=== PATIENT | female | born 1985 | race African-American/Black ===

== ENCOUNTER 2019-02-06 14:44 | Emergency (ER) | payer MEDICAID ==
--- NOTE | 2019-02-06 15:15 | ED ---
Neurological HPI - HPI Summary HPI Summary: Patient is a 33 y/o F w/ Hx of seizures who presents to [facility] via EMS for reported seizure episode that occurred earlier today, 02/06/19. Patient reports that she had onset of blurred vision and light-headedness earlier today. Shortly afterwards, patient states she began to "twitch" and that her body "locked-up". Episode is estimated to have lasted 10-15 minutes. Patient denies LOC. She has been on Keppra 1000 mg in the morning and 500 mg in the evening for the past three months. Hx of carpal tunnel syndrome, herniated disc, arthritis, sciatica, depression, anxiety is reported. 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 She states that she has been clean since September 2018 and reports that she had just recently started taking suboxone. Patient is also on baclofen, gabapentin, clindamyacin for a tooth infection, diazepam, hydroxyzine PRN, ibuprofen PRN. On triage, pain is denied, nothing is noted to aggravate/alleviate Sx. Home medications and allergies are reviewed. - History of Current Complaint Stated Complaint: SEIZURE PER EMS Time Seen by Provider: 02/06/19 14:46 Hx Obtained From: Patient Onset/Duration: Resolved Timing: Intermittent Episodes Lasting: Current Severity: None - pain is denied Neurological Deficit Location: Generalized Pain Intensity: 0 Pain Scale Used: 0-10 Numeric Character: Dizzy - light-headed, Visual Changes - blurred vision, Other: - seizure Aggravating: Nothing Alleviating: Nothing Associated Signs and Symptoms: Positive: Visual Changes - blurred vision, Dizziness - light-headedness, Seizure - Allergy/Home Medications Allergies/Adverse Reactions: Allergies Allergy/AdvReac Type Severity Reaction Status Date / Time amoxicillin Allergy Anaphylatic Verified 02/06/19 14:50 Shock Iodine and Iodide Containing Allergy Hives Verified 02/06/19 14:50 Produc Penicillins Allergy Anaphylatic Verified 02/06/19 14:50 Shock tramadol Allergy Rash Verified 02/06/19 14:50 PMH/Surg Hx/FS Hx/Imm Hx Musculoskeletal History: Reports: Hx Arthritis, Other Musculoskeletal History - herniated disc Neurological History: Reports: Hx Seizures, Other Neuro Impairments/Disorders - sciatica,carpal tunnel syndrome Psychiatric History: Reports: Hx Anxiety, Hx Depression, Hx Substance Abuse Infectious Disease History: No Infectious Disease History: Denies: Traveled Outside the [place] in Last 30 Days - Family History Known Family History: Negative: Seizure Disorder - Social History Alcohol Use: None Substance Use Type: Reports: None Substance Use Comment - Amount & Last Used: hx meth heroin 12/2018 Smoking Status (MU): Former Smoker Review of Systems Positive: Blurred Vision Neurological: Other - positive - reported seizure activity, light-headedness Negative: Syncope - no LOC All Other Systems Reviewed And Are Negative: Yes Physical Exam - Summary Physical Exam Summary: Appearance: The patient is well-nourished in no acute distress and in no acute pain. Skin: The skin is warm and dry, and skin color reflects adequate perfusion. HEENT: The head is normocephalic and atraumatic. The pupils are equal and reactive. The conjunctivae are clear and without drainage. Nares are patent and without drainage. Mouth reveals moist mucous membranes, and the throat is without erythema and exudate. The external ears are intact. The ear canals are patent and without drainage. The tympanic membranes are intact. Neck: The neck is supple with full range of motion and non-tender. There are no carotid bruits. There is no neck vein distension. Respiratory: Chest is non-tender. Lungs are clear to auscultation and breath sounds are symmetrical and equal. Cardiovascular: Heart is regular rate and rhythm. There is no murmur or rub auscultated. There is no peripheral edema and pulses are symmetrical and equal. Abdomen: The abdomen is soft and non-tender. There are normal bowel sounds heard in all four quadrants and there is no organomegaly palpated. Musculoskeletal: There is no back tenderness noted. Extremities are non-tender with full range of motion. There is good capillary refill. There is no peripheral edema or calf tenderness elicited. Neurological: Patient is alert and oriented to person, place and time. The patient has symmetrical motor strength in all four extremities. Cranial nerves are grossly intact. Deep tendon reflexes are symmetrical and equal in all four extremities. Psychiatric: The patient has an appropriate affect and does not exhibit any anxiety or depression. Triage Information Reviewed: Yes Vital Signs On Initial Exam: Initial Vitals Temp Pulse Resp BP Pulse Ox 98.8 F 98 16 128/83 99 02/06/19 14:46 02/06/19 14:46 02/06/19 14:46 02/06/19 14:46 02/06/19 14:46 Vital Signs Reviewed: Yes Procedures - Sedation Patient Received Moderate/Deep Sedation with Procedure: No Diagnostics - Vital Signs Vital Signs Temp Pulse Resp BP Pulse Ox 02/06/19 14:48 93 99 02/06/19 14:47 95 128/83 99 02/06/19 14:46 98.8 F 98 16 128/83 99 - Laboratory Result Diagrams: 02/06/19 15:22 02/06/19 15:22 Lab Statement: Any lab studies that have been ordered have been reviewed, and results considered in the medical decision making process. Re-Evaluation - Re-Evaluation First Eval Re-Evaluation Time: 17:16 Comment: Results of workup were discussed, patient will be discharged to home and follow up with PCP. Course/Dx - Course Course Of Treatment: Ms. Fontaine had what she describes as a seizure at [facility] today. She's been an inpatient at [facility] from a couple of days. She came from an inpatient status is [facility]. She was hospitalized for opioid and meth use. She was nontoxic in appearance here with stable vitals. She was observed and had no further seizure activity. Her labs were remarkable only for very mild leukopenia and anemia. She is on Keppra which can cause pancytopenia and I recommended that she follow closely with the doctors at [facility]. - Diagnoses Provider Diagnoses: Breakthrough seizure Discharge ED - Sign-Out/Discharge Documenting (check all that apply): Patient Departure - discharge - Discharge Plan Condition: Stable Disposition: HOME Patient Education Materials: Recurrent Seizures in Adults (ED) Referrals: [facility] [Outside] - 3 Days Additional Instructions: YOUR WHITE CELL COUNT AND HEMOGLOBIN WERE SOMEWHAT LOW. THIS SHOULD BE FOLLOWED UP BY YOUR PRIMARY CARE PHYSICIAN KEPPRA CAN CAUSE THIS. PLEASE RETURN TO ED FOR ANY NEW OR CONCERNING SYMPTOMS. PLEASE FOLLOW UP WITH YOUR PRIMARY CARE PHYSICIAN WITHIN THREE DAYS. - Billing Disposition and Condition Condition: STABLE Disposition: Home - Attestation Statements Document Initiated by Ye: Yes Documenting Scribe: ISIS SANDOVAL Provider For Whom Ye is Documenting (Include Credential): MICHAEL MOSQUERA MD Scribe Attestation: ISIS Milton, scribed for MICHAEL MOSQUERA MD on 02/06/19 at 2055. Scribe Documentation Reviewed: Yes Provider Attestation: The documentation as recorded by the ISIS mariscal accurately reflects the service I personally performed and the decisions made by me, MICHAEL MOSQUERA MD Status of Ye Document: Viewed
[2019-02-06 15:31] LABS: ABS Eosinophils 0.1 10^3/ul (0-0.6); ABS Monocytes 0.6 10^3/ul (0-0.8); ABS Neutrophils 1.6 10^3/ul (1.5-7.7); Eosinophil % 1.7 %; Hematocrit 35 % (35-47); Hemoglobin 11.8 g/dL (12.0-16.0); Lymphocyte % 29.8 %; Mean Corpuscular HGB Conc 34 g/dL (31-36); Mean Corpuscular Hemoglobin 30 pg (27-31); Mean Corpuscular Volume 88 fL (80-97); Mean Platelet Volume 8.1 fL (7.4-10.4); Nucleated Red Blood Cells % 0.1; Platelet Count 242 10^3/uL (150-450); Red Blood Count 3.91 10^6 /uL (3.70-4.87); Red Cell Distribution Width 13 % (10-15); White Blood Count 3.3 10^3/uL (3.5-10.8)
[2019-02-06 15:37] LABS: INR 1.05 (0.82-1.09)
[2019-02-06 15:48] LABS: Albumin 3.6 g/dL (3.2-5.2); Albumin/Globulin Ratio 1.2 (1-3); BUN/Creatinine Ratio 20.8 (8-20); Calcium 8.9 mg/dL (8.6-10.3); EGFR African American 105.1 (>60); EGFR Non-African American 86.9 (>60); Magnesium 1.9 mg/dL (1.9-2.7); Potassium 4.5 mmol/L (3.5-5.0); Total Bilirubin 0.4 mg/dL (0.2-1.0); Total Protein 6.6 g/dL (6.4-8.9)
[2019-02-06 16:32] LABS: TSH (Thyroid Stimulating Horm) 0.02 mcIU/mL (0.34-5.60)
[2019-02-06 17:23] LABS: Urine Appearance Clear; Urine Bilirubin Negative (Negative); Urine Blood Negative (Negative); Urine Color Yellow; Urine Glucose Negative (Negative); Urine Ketones Negative (Negative); Urine Nitrite Negative (Negative); Urine Protein Negative (Negative); Urine Specific Gravity 1.016 (1.010-1.030); Urine Urobilinogen Negative (Negative)
[2019-02-06 17:31] VITALS: BP 119/70
--- NOTE | 2019-02-09 05:49 | ED ---
Imaging and Labs Follow Up Follow Up Type: Labs/Cultures Labs/Culture Result: Laboratory results for Keppra resulted as 4.4 which is low as a reference values are 12-46. These results are to be faxed to [facility] which is the patient's primary care provider for further management. Patient Communication/Plan: Nothing further at this time Provider Diagnoses: Breakthrough seizure
== END 2019-02-06 17:31 | disposition home or self-care (01) ==
LOC: ED 14:44
DX: R56.9 Unspecified convulsions (principal); F41.9 Anxiety disorder, unspecified; F32.9 Major depressive disorder, single episode, unspecified; Z87.891 Personal history of nicotine dependence; Z88.5 Allergy status to narcotic agent; Z88.0 Allergy status to penicillin; Z91.041 Radiographic dye allergy status
CPT/HCPCS: 36415; 80053; 80177; 81003; 83605; 83735; 84443; 85025; 85610; 99283

== ENCOUNTER 2019-02-25 12:17 | Emergency (ER) | payer MEDICAID ==
[2019-02-25] MEDS ORDERED: Ketorolac INJ* 30 MG/ML 1 ML VIAL IV ONE (12:46)
[2019-02-25] MEDS ORDERED: NS 0.9% 1000 ML** 1,000 ML IV ONE (12:46)
[2019-02-25] MEDS ORDERED: Metoclopramide IV* 5 MG/ML 2 ML VIAL IV ONE (12:46)
--- NOTE | 2019-02-25 12:46 | ED ---
Complex/Multi-Sys Presentation - HPI Summary HPI Summary: This patient is a 33 year old F with a history of seizures on keppra. , carpal tunnel syndrome and seizures presenting to ED with a chief complaint of general malaise since five days ago. Patient reports that her HR has been over 110 for the past five days. She reports dizziness, lightheadedness, nausea, blurred vision, dry throat and mouth, numbness/tingling of the bilateral hands, headache , lethargic, body aches, diaphoresis, chills, and swelling of the bilateral lower extremities. Patient denies abd pain, vomiting or fever. She is also on Zofran from the [facility]. Patient is on Suboxone, taking 12mg daily, without any recent changes in the dosage. Hx polysubstance abuse, the last time patient used heroin> 1 month ago (hx IVDU, heroin and methamphetamines ). The patient rates the pain 6/10 in severity. - History Of Current Complaint Chief Complaint: EDGeneral Time Seen by Provider: 02/25/19 12:32 Hx Obtained From: Patient Onset/Duration: Gradual Onset, Lasting Days - 5 days, Still Present, Worse Since Timing: Constant Severity Currently: Moderate Severity Initially: Moderate Aggravating Factor(s): Nothing Alleviating Factor(s): Nothing Associated Signs And Symptoms: Positive: Other - dizziness, lightheadedness, nauseous, blurred vision, dry throat and mouth, numbness/tingling of the bilateral hands, headache, lethargic, body aches, diaphoresis, chills, and swelling of the bilateral lower extremities. Negative: Vomiting, Fever - Allergies/Home Medications Allergies/Adverse Reactions: Allergies Allergy/AdvReac Type Severity Reaction Status Date / Time amoxicillin Allergy Anaphylatic Verified 02/25/19 12:28 Shock Iodine and Iodide Containing Allergy Hives Verified 02/25/19 12:28 Produc Penicillins Allergy Anaphylatic Verified 02/25/19 12:28 Shock tramadol Allergy Rash Verified 02/25/19 12:28 Home Medications: Home Medications Baclofen TAB* [Lioresal TAB*] 5 mg PO TID 02/25/19 [History Confirmed 02/25/19] Bifidobacterium Infantis [Align] 4 mg PO DAILY 02/25/19 [History Confirmed 02/25] Buprenorp/Nalox 8-2 MG SL TAB [Suboxone 8-2 mg SL TAB*] 1 tab.sl SL DAILY [History Confirmed 02/25/19] Chlorhexidine MOUTHWASH 0.12%* [Peridex Mouth Wash 0.12%*] 10 ml SWISH SPIT BID 02/25/19 [History Confirmed 02/25/19] Clindamycin Cap(NF) [Clindamycin Cap 300 mg Cap(NF)] 300 mg PO QID 02/25/19 [ History Confirmed 02/25/19] Doxepin (NF) 50 mg PO BEDTIME 02/25/19 [History Confirmed 02/25/19] Gabapentin TAB(NF) [Neurontin 600 mg TAB(NF)] 600 mg PO TID 02/25/19 [History Confirmed 02/25/19] Ibuprofen TAB* [Motrin TAB* 600 MG] 600 mg PO QID PRN 02/25/19 [History Confirmed 02/25/19] Lidocaine Patch 4% 1 patch TRANSDERM DAILY 02/25/19 [History Confirmed 02/25/19] LoraTADine TAB(NF) [Claritin 10 MG TAB(NF)] 10 mg PO DAILY 02/25/19 [History Confirmed 02/25/19] Menthol [Biofreeze] 1 applic TOPICAL DAILY 02/25/19 [History Confirmed 02/25/19] Nicotine GUM* 4MG FRUIT FLAVOR [Nicotine GUM*] 4 mg PO .12/DAY 02/25/19 [ History Confirmed 02/25/19] Nicotine PATCH 21 MG/24 HR* 21 mg TRANSDERM DAILY 02/25/19 [History Confirmed ] Omeprazole CAP (NF) [Prilosec CAP* 20 MG] 20 mg PO DAILY 02/25/19 [History Confirmed 02/25/19] Ondansetron ODT TAB* [Zofran 4 MG Odt TAB*] 8 mg PO QID PRN 02/25/19 [History Confirmed 02/25/19] Thiamine TAB* [Vitamin B-1 TAB*] 100 mg PO DAILY 02/25/19 [History Confirmed ] Tiotropium CAPSULE (NF) [Spiriva CAPSULE (NF)] 1 cap.inh INH DAILY 02/25/19 [ History Confirmed 02/25/19] Tiotropium CAPSULE (NF) [Spiriva CAPSULE (NF)] 2 cap.inh INH DAILY 02/25/19 [ History Confirmed 02/25/19] hydrOXYzine HCL TAB* [Atarax TAB 50 MG *] 50 mg PO Q6H PRN 02/25/19 [History Confirmed 02/25/19] levETIRAcetam TAB* [Keppra TAB*] 1,000 mg PO DAILY 02/25/19 [History Confirmed 02/25/19] levETIRAcetam TAB* [Keppra TAB*] 500 mg PO BEDTIME 02/25/19 [History Confirmed 02/25/19] PMH/Surg Hx/FS Hx/Imm Hx Respiratory History: Reports: Hx Asthma Musculoskeletal History: Reports: Hx Arthritis, Other Musculoskeletal History - Herniated disc, carpal tunnel syndrome Neurological History: Reports: Hx Seizures, Other Neuro Impairments/Disorders - sciatica,carpal tunnel syndrome Psychiatric History: Reports: Hx Anxiety, Hx Depression, Hx Substance Abuse - Surgical History Surgery Procedure, Year, and Place: [place] teeth. Right knee arthroscopy Infectious Disease History: No Infectious Disease History: Denies: Traveled Outside the [place] in Last 30 Days - Family History Known Family History: Negative: Seizure Disorder - Social History Alcohol Use: None Hx Substance Use: Yes Substance Use Type: Reports: Heroin Substance Use Comment - Amount & Last Used: hx meth heroin 12/2018 Hx Tobacco Use: Yes Smoking Status (MU): Former Smoker Review of Systems Constitutional: Other - Lethargic Positive: Chills, Skin Diaphoresis. Negative: Fever Positive: Blurred Vision ENT: Other - Dry throat and mouth Cardiovascular: Other - Fast HR (>110) Positive: Nausea. Negative: Vomiting Musculoskeletal: Other - Swelling of bilateral LE Positive: Arthralgia, Myalgia Neurological: Other - Dizziness, lightheadedness Positive: Headache, Weakness - Bilateral hands, Numbness - Bilateral hands All Other Systems Reviewed And Are Negative: Yes Physical Exam - Summary Physical Exam Summary: Constitutional: Well-developed, Well-nourished, Alert. (-) Distressed Skin: Warm, Dry HENT: Normocephalic; Atraumatic Eyes: Conjunctiva normal Neck: Musculoskeletal ROM normal neck. (-) JVD, (-) Stridor, (-) Nuchal rigidity Cardio: Rhythm regular, rate normal, Heart sounds normal; Intact distal pulses; Radial pulses are 2+ and symmetric. (-) Murmur Pulmonary/Chest wall: Effort normal. (-) Respiratory distress, (-) Wheezes, (-) Rales Abd: Soft, (-) tenderness, (-) Distension, (-) Guarding, (-) Rebound Musculoskeletal: trace edema ankles, +bilateral tinnel's sign. Lymph: (-) Cervical adenopathy Neuro: Alert, Oriented x3 Psych: Mood and affect Normal Triage Information Reviewed: Yes Vital Signs On Initial Exam: Initial Vitals Temp Pulse Resp BP Pulse Ox 98.8 F 98 19 121/81 97 02/25/19 12:25 02/25/19 12:25 02/25/19 12:25 02/25/19 12:25 02/25/19 12:25 Vital Signs Reviewed: Yes Procedures - Sedation Patient Received Moderate/Deep Sedation with Procedure: No Diagnostics - Vital Signs Vital Signs Temp Pulse Resp BP Pulse Ox 02/25/19 12:25 98.8 F 98 19 121/81 97 - Laboratory Result Diagrams: 02/25/19 13:00 02/25/19 13:00 Lab Statement: Any lab studies that have been ordered have been reviewed, and results considered in the medical decision making process. - EKG 1326 Cardiac Rate: NL - 90 BPM EKG Rhythm: Sinus Rhythm Summary of EKG Findings: An EKG at 1326 revealed NSR at 90 BPM, T-wave inversions in leads III and aVF, no prior to compare to. Re-Evaluation - Re-Evaluation First Eval Re-Evaluation Time: 14:42 Comment: Discussed results with patient. Feels better but still fatigued. Patient will be discharged home with dx of fatigue and nausea. Patient understands and agrees with this plan. Complex Multi-Symp Course/Dx Course Of Treatment: 33 y/o F w hx seizures p/w multiple complaints. - regarding headache - history of headaches of similar type. This is not the worst headache patient has had, and no additional features today to suggest need for further workup on a truly emergent basis (imaging, LP, etc). - nausea : given IVF for rehydration, VS normal, no electrolyte abnormalities. No infectious symptoms. Tolerating PO. - trace LE edema - normal LFTs and Cr. Mild edema bilaterally. - Diagnoses Provider Diagnoses: Fatigue, Nausea Discharge ED - Sign-Out/Discharge Documenting (check all that apply): Patient Departure - Discharge - Discharge Plan Condition: Stable Disposition: HOME Patient Education Materials: Fatigue (ED) Referrals: Marcy Wilhelm [facility] [Primary Care Provider] - Additional Instructions: You were seen in the emergency department for fatigue and nausea. Your labs not show cause for your nausea. Zofran as needed as prescribed. Please drink lots of fluids including Gatorade and water. If any studies were not completed at the time of discharge you will be called with the relevant results. Please follow up with your primary care doctor in next 2-3 days and return to emergency department for worsening nausea, vomiting, abdominal pain, fevers or concerning symptoms. It was a pleasure taking care of you today. - Billing Disposition and Condition Condition: STABLE Disposition: Home - Attestation Statements Document Initiated by Ye: Yes Documenting Scribe: Ellis Salas Provider For Whom Ye is Documenting (Include Credential): Kiran Meza MD Scribe Attestation: I, Ellis Salas, scribed for Kiran Meza MD on 02/25/19 at 1444. Scribe Documentation Reviewed: Yes Provider Attestation: The documentation as recorded by the Ellis mariscal accurately reflects the service I personally performed and the decisions made by me, Kiran Meza MD Status of Scribe Document: Viewed
[2019-02-25 13:10] LABS: ABS Eosinophils 0.1 10^3/ul (0-0.6); ABS Lymphocytes 1.5 10^3/ul (1.0-4.8); ABS Monocytes 0.6 10^3/ul (0-0.8); Eosinophil % 2.9 %; Hematocrit 35 % (35-47); Hemoglobin 12.1 g/dL (12.0-16.0); Lymphocyte % 35.2 %; Mean Corpuscular HGB Conc 35 g/dL (31-36); Mean Corpuscular Hemoglobin 30 pg (27-31); Mean Corpuscular Volume 87 fL (80-97); Mean Platelet Volume 7.7 fL (7.4-10.4); Platelet Count 229 10^3/uL (150-450); Red Blood Count 4.01 10^6 /uL (3.70-4.87); Red Cell Distribution Width 13 % (10-15); White Blood Count 4.2 10^3/uL (3.5-10.8)
[2019-02-25 13:26] LABS: ALT 74 U/L (7-52); AST 53 U/L (13-39); Albumin 3.6 g/dL (3.2-5.2); Albumin/Globulin Ratio 1.4 (1-3); Alkaline Phosphatase 49 U/L (34-104); Anion Gap 4 mmol/L (2-11); BUN/Creatinine Ratio 25.4 (8-20); Blood Urea Nitrogen 16 mg/dL (6-24); CO2 Carbon Dioxide 28 mmol/L (22-32); Calcium 9.1 mg/dL (8.6-10.3); Chloride 105 mmol/L (101-111); EGFR African American 132.5 (>60); EGFR Non-African American 109.5 (>60); Globulin 2.5 g/dL (2-4); Glucose 112 mg/dL (70-100); Potassium 4.3 mmol/L (3.5-5.0); Sodium 137 mmol/L (135-145); Total Protein 6.1 g/dL (6.4-8.9)
[2019-02-25 13:32] LABS: HCG Pregnancy < 0.60 mIU/mL
[2019-02-25 15:13] VITALS: BP 106/55
== END 2019-02-25 15:01 | disposition home or self-care (01) ==
LOC: ED 12:17
DX: R53.83 Other fatigue (principal); R11.0 Nausea; J45.909 Unspecified asthma, uncomplicated; F41.9 Anxiety disorder, unspecified; F32.9 Major depressive disorder, single episode, unspecified; Z87.891 Personal history of nicotine dependence; Z79.899 Other long term (current) drug therapy; Z88.5 Allergy status to narcotic agent; Z88.0 Allergy status to penicillin; Z91.041 Radiographic dye allergy status
CPT/HCPCS: 36415; 80053; 84702; 85025; 93005; 96374; 96375; 99282; J1885; J2765